=== PATIENT | male | born 1940 | race Caucasian/White ===

== ENCOUNTER 2018-02-19 21:29 | Inpatient (IN) | payer MEDICARE ==
[~2018-02-19] VITALS: Ht 185.4 cm; Wt 66.4 kg
[~2018-02-19 21:29] MED LIST: 00186-0370-20 IH; CRANBERRY 100 M1 SGL PO; EPITOL PO; MULTIPLE VITAMI1 CAP PO; NORCO 325 MG-51 TAB PO; PARCOPA 25/101 UDTAB NG; PRAVACHOL 40MG40 MG PO; PREPARATIO1 SUPP.REC RC; PROBIOTIC FORMU1 CAP PO; PROTONIX 40MG T40 MG PO; PROZAC 20MG20 MG PO; SINEMET 25/101 UDTAB PO; SYNTHROID0.05 MG/TA PO; TEGRETOL 2200 MG/TA1 PO; TRELEGY ELLIPT1 EACH IH; ZESTRIL 10MG10 MG PO; ZYRTEC 10MG10 MG PO
[2018-02-19 22:42] LABS: BASO % 0.4 % (0.0-2.0); EOS # 0.1 (0.0-0.7); EOS % 1.6 % (0-4.0); GRAN # 6.1 (1.4-6.5); GRAN % 71.5 % (42.2-75.2); HEMATOCRIT 38.9 % (42.0-52.0); HEMOGLOBIN 13.4 g/dl (13.5-18.0); LYMPH # 1.4 (1.2-3.4); LYMPH % 16.6 % (20.0-51.0); MEAN CELL VOLUME 98 fl (80.0-100.0); MEAN CORPUSCULAR HEMOGLOBIN 34 pg (27.0-31.0); MEAN CORPUSCULAR HGB CONC 34 g/dl (33.0-37.0); MEAN PLATELET VOLUME 9.1 fl (7.4-10.4); MONO # 0.8 (0.1-0.6); MONO % 9.7 % (1.7-9.3); PLATELET COUNT 209 K/mm3 (130-400); RED BLOOD COUNT 3.98 M/mm3 (4.20-5.60); REDCELL DISTRIBUTION WIDTH-CV 12.4 % (11.5-14.5)
[2018-02-19 22:56] LABS: ALANINE AMINOTRANSFERASE 30 U/L (21-72); ALBUMIN 3.8 gm/dL (3.5-5.0); ALKALINE PHOSPHATASE 108 U/L (50-136); ANION GAP 11 mmol/L (7-16); AST,SGOT 29 U/L (15-37); BILIRUBIN,TOTAL 0.3 mg/dL (0.0-1.0); BLOOD UREA NITROGEN 17 mg/dL (9-20); C-REACTIVE PROTEIN 4.7 mg/dL (0.0-0.9); CALCIUM 8.5 mg/dL (8.4-10.2); CARBON DIOXIDE 25 mmol/L (22-30); CHLORIDE 103 mmol/L (98-107); CREATININE, serum 0.84 mg/dL (0.66-1.25); GLUCOSE 81 mg/dL (74-106); POTASSIUM 3.9 mmol/L (3.4-5.0); SODIUM 139 mmol/L (137-145); TOTAL PROTEIN 7.5 gm/dL (6.4-8.2)
[2018-02-19 22:58] LABS: COLLECTION METHOD CLEAN CATCH
[2018-02-19 23:03] LABS: MUCOUS Present /lpf; PH 5 (5-8); SQUAMOUS EPITHELIAL 0-2 /hpf; URINE APPEARANCE Clear; URINE BACTERIA None Seen /hpf; URINE BILIRUBIN Negative (NEGATIVE); URINE BLOOD 2+ (NEGATIVE); URINE COLOR Yellow; URINE GLUCOSE Negative (NEGATIVE); URINE KETONE Negative (NEGATIVE); URINE LEUKOCYTE ESTERASE Trace (NEGATIVE); URINE NITRATE Negative (NEGATIVE); URINE PROTEIN(semi-quant) Negative (NEGATIVE); URINE UROBILINOGEN Negative (NEGATIVE)
[2018-02-19 23:07] LABS: TROPONIN-I < 0.012 ng/mL (0.000-0.034)
[2018-02-20 03:24] VITALS: BP 160/70; PULSE 62; TEMP 98.4
[2018-02-20] MEDS ORDERED: KEPPRA 500MG500 MG PO (03:47)
[2018-02-20 06:32] LABS: BASO % 0.3 % (0.0-2.0); EOS # 0.1 (0.0-0.7); EOS % 1.6 % (0-4.0); GRAN % 71.2 % (42.2-75.2); HEMOGLOBIN 12.3 g/dl (13.5-18.0); LYMPH # 1.1 (1.2-3.4); MEAN CELL VOLUME 98 fl (80.0-100.0); MEAN CORPUSCULAR HEMOGLOBIN 34 pg (27.0-31.0); MEAN CORPUSCULAR HGB CONC 34 g/dl (33.0-37.0); MEAN PLATELET VOLUME 9.6 fl (7.4-10.4); MONO # 0.7 (0.1-0.6); MONO % 10.6 % (1.7-9.3); PLATELET COUNT 196 K/mm3 (130-400); RED BLOOD COUNT 3.65 M/mm3 (4.20-5.60); REDCELL DISTRIBUTION WIDTH-CV 12.4 % (11.5-14.5)
[2018-02-20 06:43] LABS: HEMATOCRIT 35.9 % (42.0-52.0)
[2018-02-20 06:50] LABS: CREATININE, serum 0.78 mg/dL (0.66-1.25); POTASSIUM 4.3 mmol/L (3.4-5.0)
[2018-02-20 08:37] VITALS: BP 150/72; PULSE 64; TEMP 98.3
[2018-02-20 11:56] VITALS: BP 152/70; PULSE 65; TEMP 98.3
[2018-02-20 17:35] VITALS: BP 132/64; PULSE 58; TEMP 97.8
[2018-02-20 20:00] VITALS: BP 140/55; PULSE 63; TEMP 97.9
[2018-02-21 01:02] VITALS: BP 115/60; PULSE 67; TEMP 97.8
[2018-02-21 05:24] VITALS: BP 119/49; PULSE 57; TEMP 98
[2018-02-21 06:57] LABS: BASO % 0.6 % (0.0-2.0); EOS # 0.2 (0.0-0.7); EOS % 4.2 % (0-4.0); GRAN # 3.3 (1.4-6.5); GRAN % 61.4 % (42.2-75.2); HEMATOCRIT 34.1 % (42.0-52.0); HEMOGLOBIN 11.6 g/dl (13.5-18.0); LYMPH # 1.2 (1.2-3.4); LYMPH % 22.3 % (20.0-51.0); MEAN CELL VOLUME 97 fl (80.0-100.0); MEAN CORPUSCULAR HEMOGLOBIN 33 pg (27.0-31.0); MEAN CORPUSCULAR HGB CONC 34 g/dl (33.0-37.0); MEAN PLATELET VOLUME 9.4 fl (7.4-10.4); MONO # 0.6 (0.1-0.6); MONO % 11.3 % (1.7-9.3); PLATELET COUNT 162 K/mm3 (130-400); REDCELL DISTRIBUTION WIDTH-CV 12.5 % (11.5-14.5)
[2018-02-21 07:10] LABS: CALCIUM 7.7 mg/dL (8.4-10.2); CREATININE, serum 0.78 mg/dL (0.66-1.25); MAGNESIUM 1.9 mg/dL (1.6-2.3); POTASSIUM 3.9 mmol/L (3.4-5.0)
[2018-02-21 07:19] VITALS: BP 127/56; PULSE 70; TEMP 98.1
[2018-02-21 10:57] VITALS: BP 120/62; PULSE 67; TEMP 98.5
[2018-02-21 15:06] VITALS: BP 108/41; PULSE 60; TEMP 98.4
[2018-02-21 20:32] VITALS: BP 108/43; PULSE 74; TEMP 98
[2018-02-22 03:39] VITALS: BP 155/77; PULSE 78; TEMP 98.1
[2018-02-22 06:37] LABS: BASO % 0.5 % (0.0-2.0); EOS # 0.3 (0.0-0.7); EOS % 4.5 % (0-4.0); GRAN # 3.5 (1.4-6.5); GRAN % 62.2 % (42.2-75.2); HEMOGLOBIN 11.4 g/dl (13.5-18.0); LYMPH # 1.3 (1.2-3.4); LYMPH % 22.4 % (20.0-51.0); MEAN CELL VOLUME 98 fl (80.0-100.0); MEAN CORPUSCULAR HEMOGLOBIN 33 pg (27.0-31.0); MEAN CORPUSCULAR HGB CONC 34 g/dl (33.0-37.0); MEAN PLATELET VOLUME 9.4 fl (7.4-10.4); MONO # 0.6 (0.1-0.6); PLATELET COUNT 164 K/mm3 (130-400); RED BLOOD COUNT 3.42 M/mm3 (4.20-5.60); REDCELL DISTRIBUTION WIDTH-CV 12.5 % (11.5-14.5)
[2018-02-22 06:40] LABS: HEMATOCRIT 33.6 % (42.0-52.0)
[2018-02-22 06:43] LABS: CREATININE, serum 0.77 mg/dL (0.66-1.25); POTASSIUM 4.2 mmol/L (3.4-5.0)
[2018-02-22 07:37] VITALS: BP 112/47; PULSE 55; TEMP 98
[2018-02-22 11:06] VITALS: BP 119/67; PULSE 59; TEMP 97.5
[2018-02-22 16:16] VITALS: BP 102/43; PULSE 63; TEMP 98.7
[2018-02-22 18:35] VITALS: BP 106/44; PULSE 56; TEMP 98.4
[2018-02-23 00:30] VITALS: BP 122/40; PULSE 58; TEMP 98.3
[2018-02-23 04:10] VITALS: BP 117/46; PULSE 60; TEMP 97.6
[2018-02-23 08:29] VITALS: BP 111/60; PULSE 61; TEMP 98.2
[2018-02-23] MEDS ORDERED: FIRVANQ50 MG/1 ML PO (09:26)
[2018-02-23 12:15] VITALS: BP 100/53; PULSE 61; TEMP 97.9
== END 2018-02-23 18:35 | disposition home health service (06) | DRG 392 ==
LOC: COL.ER 21:29 → MEDICAL 02-20 01:38
PROVIDERS: Emergency Medicine; Nurse Practitioner Family; Physician Assistant
PROC: 02HV33Z Insertion of Infusion Device into Superior Vena Cava, Percutaneous Approach (ICD-10-PCS; principal; 2018-02-20)
DX: R19.7 Diarrhea, unspecified (principal); E44.0 Moderate protein-calorie malnutrition; I69.351 Hemiplegia and hemiparesis following cerebral infarction affecting right dominant side; Z68.1 Body mass index [BMI] 19.9 or less, adult; I10 Essential (primary) hypertension; I69.320 Aphasia following cerebral infarction; G20 Parkinson's disease; Z86.718 Personal history of other venous thrombosis and embolism; Z87.891 Personal history of nicotine dependence; G40.909 Epilepsy, unspecified, not intractable, without status epilepticus
CPT/HCPCS: 99223-AI; 99232-AI; 99239; C1751; G8978-GP; G8979-GP; G8987-GO; G8988-GO; J1650; J1956; J7030; J7040

== ENCOUNTER 2018-03-07 21:37 | Inpatient (IN) | payer MEDICARE ==
[~2018-03-07] VITALS: Ht 185.4 cm; Wt 63.6 kg
[~2018-03-07 21:37] MED LIST changes: +FIRVANQ50 MG/1 ML PO; +KEPPRA 500MG500 MG PO
[2018-03-07 23:22] LABS: BASO % 0.3 % (0.0-2.0); EOS # 0.1 (0.0-0.7); EOS % 2.1 % (0-4.0); GRAN # 3.8 (1.4-6.5); GRAN % 64.7 % (42.2-75.2); HEMATOCRIT 37.5 % (42.0-52.0); HEMOGLOBIN 12.8 g/dl (13.5-18.0); LYMPH # 1.3 (1.2-3.4); LYMPH % 22.3 % (20.0-51.0); MEAN CELL VOLUME 98 fl (80.0-100.0); MEAN CORPUSCULAR HEMOGLOBIN 34 pg (27.0-31.0); MEAN CORPUSCULAR HGB CONC 34 g/dl (33.0-37.0); MEAN PLATELET VOLUME 9.1 fl (7.4-10.4); MONO # 0.6 (0.1-0.6); MONO % 10.4 % (1.7-9.3); PLATELET COUNT 323 K/mm3 (130-400); RED BLOOD COUNT 3.81 M/mm3 (4.20-5.60); REDCELL DISTRIBUTION WIDTH-CV 12.4 % (11.5-14.5)
[2018-03-07 23:37] LABS: INR 1.1 (0.8-3.0); PROTHROMBIN TIME 12.4 SECONDS (9.7-12.8)
[2018-03-07 23:38] LABS: ALBUMIN 3.6 gm/dL (3.5-5.0); BILIRUBIN,TOTAL 0.2 mg/dL (0.0-1.0); C-REACTIVE PROTEIN 0.8 mg/dL (0.0-0.9); CALCIUM 8.6 mg/dL (8.4-10.2); CREATININE, serum 0.75 mg/dL (0.66-1.25); POTASSIUM 4.4 mmol/L (3.4-5.0); TOTAL PROTEIN 7.1 gm/dL (6.4-8.2)
[2018-03-08] LABS: COLLECTION METHOD CLEAN CATCH
[2018-03-08 00:15] LABS: MUCOUS Present /lpf; PH 6 (5-8); SQUAMOUS EPITHELIAL None Seen /hpf; URINE APPEARANCE Clear; URINE BACTERIA None Seen /hpf; URINE BILIRUBIN Negative (NEGATIVE); URINE BLOOD Negative (NEGATIVE); URINE COLOR Yellow; URINE GLUCOSE Negative (NEGATIVE); URINE KETONE Negative (NEGATIVE); URINE LEUKOCYTE ESTERASE Negative (NEGATIVE); URINE NITRATE Negative (NEGATIVE); URINE PROTEIN(semi-quant) Negative (NEGATIVE); URINE RBC 0-2 /hpf; URINE UROBILINOGEN Negative (NEGATIVE)
[2018-03-08 01:28] LABS: CARBAMAZEPINE (TEGRETOL) 6.8 ug/mL (4.0-12.0)
[2018-03-08 01:47] LABS: PROLACTIN 14.1 ng/mL (3.7-17.9)
[2018-03-08 02:02] LABS: THYROID STIMULATING HORMONE 2.98 uIU/mL (0.465-4.680)
[2018-03-08 02:16] VITALS: BP 161/68; PULSE 92; TEMP 97.6
[2018-03-08 08:32] VITALS: BP 145/64; PULSE 57; TEMP 97.7
[2018-03-08 08:40] LABS: BASO % 0.5 % (0.0-2.0); EOS # 0.2 (0.0-0.7); EOS % 3.1 % (0-4.0); GRAN # 3.4 (1.4-6.5); GRAN % 60.7 % (42.2-75.2); HEMOGLOBIN 12.4 g/dl (13.5-18.0); LYMPH # 1.5 (1.2-3.4); LYMPH % 26.3 % (20.0-51.0); MEAN CELL VOLUME 97 fl (80.0-100.0); MEAN CORPUSCULAR HEMOGLOBIN 34 pg (27.0-31.0); MEAN CORPUSCULAR HGB CONC 35 g/dl (33.0-37.0); MEAN PLATELET VOLUME 9.8 fl (7.4-10.4); MONO # 0.5 (0.1-0.6); MONO % 9.2 % (1.7-9.3); PLATELET COUNT 243 K/mm3 (130-400); RED BLOOD COUNT 3.67 M/mm3 (4.20-5.60); REDCELL DISTRIBUTION WIDTH-CV 12.3 % (11.5-14.5)
[2018-03-08 08:41] LABS: ALBUMIN 3.1 gm/dL (3.5-5.0); BILIRUBIN,TOTAL 0.3 mg/dL (0.0-1.0); CALCIUM 8.2 mg/dL (8.4-10.2); CHOLESTEROL RISK RATIO 2.5; CREATININE, serum 0.73 mg/dL (0.66-1.25); HEMATOCRIT 35.5 % (42.0-52.0); POTASSIUM 4.1 mmol/L (3.4-5.0); TOTAL PROTEIN 6.2 gm/dL (6.4-8.2)
[2018-03-08 11:14] VITALS: BP 117/50; PULSE 56; TEMP 98.2
[2018-03-08 14:06] LABS: FOLATE (FOLIC ACID) 19.5 ng/mL (7.0-31.4)
[2018-03-08 15:24] VITALS: BP 123/48; PULSE 56; TEMP 97.9
[2018-03-08 21:46] VITALS: BP 143/44; PULSE 54; TEMP 97.5
[2018-03-09] VITALS (13 sets, daily range): BP systolic 126–177; BP diastolic 36–105; PULSE 51–128; TEMP 97.5–98.8
[2018-03-09 07:30] LABS: BASO % 0.7 % (0.0-2.0); EOS # 0.2 (0.0-0.7); EOS % 3.5 % (0-4.0); GRAN # 2.6 (1.4-6.5); GRAN % 57.4 % (42.2-75.2); HEMATOCRIT 32.8 % (42.0-52.0); HEMOGLOBIN 11.3 g/dl (13.5-18.0); LYMPH # 1.3 (1.2-3.4); LYMPH % 27.5 % (20.0-51.0); MEAN CELL VOLUME 97 fl (80.0-100.0); MEAN CORPUSCULAR HEMOGLOBIN 33 pg (27.0-31.0); MEAN CORPUSCULAR HGB CONC 35 g/dl (33.0-37.0); MEAN PLATELET VOLUME 9.4 fl (7.4-10.4); MONO # 0.5 (0.1-0.6); MONO % 10.7 % (1.7-9.3); PLATELET COUNT 210 K/mm3 (130-400); RED BLOOD COUNT 3.39 M/mm3 (4.20-5.60); REDCELL DISTRIBUTION WIDTH-CV 12.4 % (11.5-14.5)
[2018-03-09 07:34] LABS: INR 1.1 (0.8-3.0); PROTHROMBIN TIME 12.4 SECONDS (9.7-12.8)
[2018-03-09 07:42] LABS: CALCIUM 7.8 mg/dL (8.4-10.2); CREATININE, serum 0.79 mg/dL (0.66-1.25); POTASSIUM 4.1 mmol/L (3.4-5.0)
[2018-03-09] MEDS ORDERED: LOVENOX 4040 MG/0.4 SQ (13:33)
[2018-03-09] MEDS ORDERED: PLAVIX 75MG TAB75 MG PO (13:33)
[2018-03-09] MEDS ORDERED: ZESTRIL 5MG5 MG PO (13:34)
[2018-03-09] MEDS ORDERED: KEPPRA1000 MG PO (13:35)
[2018-03-09] MEDS ORDERED: TYLENOL 325MG325 MG PO (13:35)
== END 2018-03-09 17:15 | DRG 69 ==
LOC: COL.ER 21:37 → MEDICAL 23:17
PROVIDERS: Family Medicine; Nurse Practitioner Family
PROC: 02HV33Z Insertion of Infusion Device into Superior Vena Cava, Percutaneous Approach (ICD-10-PCS; principal; 2018-03-08)
DX: G45.9 Transient cerebral ischemic attack, unspecified (principal); I69.351 Hemiplegia and hemiparesis following cerebral infarction affecting right dominant side; E44.0 Moderate protein-calorie malnutrition; Z68.1 Body mass index [BMI] 19.9 or less, adult; G40.909 Epilepsy, unspecified, not intractable, without status epilepticus; R53.81 Other malaise; I10 Essential (primary) hypertension; G20 Parkinson's disease; Z66 Do not resuscitate; E78.5 Hyperlipidemia, unspecified; F41.8 Other specified anxiety disorders; F32.9 Major depressive disorder, single episode, unspecified; E03.9 Hypothyroidism, unspecified; I69.320 Aphasia following cerebral infarction; R60.0 Localized edema; Z86.718 Personal history of other venous thrombosis and embolism; R40.2423 Glasgow coma scale score 9-12, at hospital admission
CPT/HCPCS: 99223-AI; 99239; A9585; C1751; G0378; G8987-GO; G8988-GO; G9654; J1650; J2704; J7030

== ENCOUNTER 2018-03-09 15:07 | Inpatient (IN) | payer MEDICARE ==
[~2018-03-09] VITALS: Ht 185.4 cm; Wt 71.4 kg
[~2018-03-09 15:07] MED LIST changes: +KEPPRA1000 MG PO; +LOVENOX 4040 MG/0.4 SQ; +PLAVIX 75MG TAB75 MG PO; +TYLENOL 325MG325 MG PO; +ZESTRIL 5MG5 MG PO
[2018-03-09 17:43] VITALS: BP 160/58; PULSE 61; TEMP 97.7
[2018-03-10 04:14] VITALS: BP 163/63; PULSE 57; TEMP 98
[2018-03-10 16:40] VITALS: BP 143/64; PULSE 55; TEMP 97.7
[2018-03-11 06:00] VITALS: BP 152/66; PULSE 53; TEMP 98.1
[2018-03-12 06:00] VITALS: BP 138/52; PULSE 52; TEMP 97.8
[2018-03-12 17:16] VITALS: BP 113/20; PULSE 59; TEMP 97.4
[2018-03-12 17:30] VITALS: BP 120/60
[2018-03-13 06:00] VITALS: BP 143/48; PULSE 52; TEMP 97.8
[2018-03-14] MEDS ORDERED: ZESTRIL2.5 MG PO (09:29)
[2018-03-14 15:36] VITALS: BP 121/33; PULSE 54; TEMP 97.7
[2018-03-15 04:55] VITALS: BP 124/45; PULSE 52; TEMP 98.3
[2018-03-15 17:53] VITALS: BP 123/33; PULSE 62; TEMP 97.9
[2018-03-16 05:33] VITALS: BP 116/36; PULSE 96; TEMP 98.6
[2018-03-16 18:09] VITALS: BP 115/40; PULSE 61; TEMP 98.3
[2018-03-17 04:42] VITALS: BP 115/36; PULSE 50; TEMP 98.1
[2018-03-17 13:00] VITALS: BP 102/47; PULSE 58
[2018-03-17 18:06] VITALS: BP 125/47; PULSE 56; TEMP 97.7
[2018-03-18 06:09] VITALS: BP 132/44; PULSE 55; TEMP 98.4
[2018-03-18 16:55] VITALS: BP 118/44; PULSE 74; TEMP 98.4
[2018-03-19 04:21] VITALS: BP 130/44; PULSE 58; TEMP 98
[2018-03-19 18:16] VITALS: BP 104/43; PULSE 62; TEMP 97.7
[2018-03-20 06:30] VITALS: BP 142/92; PULSE 62; TEMP 97.5
[2018-03-20 17:56] VITALS: BP 134/41; PULSE 86; TEMP 99.7
[2018-03-20 20:14] LABS: BASO % 0.1 % (0.0-2.0); EOS % 0.1 % (0-4.0); GRAN % 88.4 % (42.2-75.2); HEMOGLOBIN 12.1 g/dl (13.5-18.0); LYMPH # 0.5 (1.2-3.4); LYMPH % 6.3 % (20.0-51.0); MEAN CELL VOLUME 98 fl (80.0-100.0); MEAN CORPUSCULAR HEMOGLOBIN 33 pg (27.0-31.0); MEAN CORPUSCULAR HGB CONC 34 g/dl (33.0-37.0); MEAN PLATELET VOLUME 8.9 fl (7.4-10.4); MONO # 0.4 (0.1-0.6); MONO % 4.8 % (1.7-9.3); PLATELET COUNT 185 K/mm3 (130-400); RED BLOOD COUNT 3.65 M/mm3 (4.20-5.60); REDCELL DISTRIBUTION WIDTH-CV 12.7 % (11.5-14.5)
[2018-03-20 20:16] LABS: HEMATOCRIT 35.8 % (42.0-52.0)
[2018-03-20 20:24] LABS: ALBUMIN 3.4 gm/dL (3.5-5.0); BILIRUBIN,TOTAL 0.4 mg/dL (0.0-1.0); CALCIUM 8.4 mg/dL (8.4-10.2); CREATININE, serum 0.71 mg/dL (0.66-1.25); POTASSIUM 4.2 mmol/L (3.4-5.0); TOTAL PROTEIN 6.5 gm/dL (6.4-8.2)
[2018-03-21 06:30] VITALS: BP 138/43; PULSE 69; TEMP 98.7
[2018-03-21 11:16] VITALS: BP 133/42; PULSE 72; TEMP 98.1
[2018-03-21 12:29] LABS: CALCIUM 8.1 mg/dL (8.4-10.2); CREATININE, serum 0.68 mg/dL (0.66-1.25); MAGNESIUM 1.8 mg/dL (1.6-2.3)
[2018-03-21 17:47] VITALS: BP 135/42; PULSE 74; TEMP 99.4
[2018-03-22 07:07] VITALS: BP 115/29; PULSE 67; TEMP 98.7
[2018-03-22 07:47] LABS: HEMOGLOBIN 11.9 g/dl (13.5-18.0); MEAN CELL VOLUME 99 fl (80.0-100.0); MEAN CORPUSCULAR HEMOGLOBIN 33 pg (27.0-31.0); MEAN CORPUSCULAR HGB CONC 33 g/dl (33.0-37.0); MEAN PLATELET VOLUME 9.1 fl (7.4-10.4); PLATELET COUNT 181 K/mm3 (130-400); RED BLOOD COUNT 3.58 M/mm3 (4.20-5.60); REDCELL DISTRIBUTION WIDTH-CV 12.5 % (11.5-14.5)
[2018-03-22 07:52] LABS: HEMATOCRIT 35.6 % (42.0-52.0)
[2018-03-22 07:56] LABS: CALCIUM 7.6 mg/dL (8.4-10.2); CREATININE, serum 0.71 mg/dL (0.66-1.25); MAGNESIUM 1.9 mg/dL (1.6-2.3); POTASSIUM 3.6 mmol/L (3.4-5.0)
[2018-03-22 09:05] LABS: BAND 45 % (0-10); LYMPHOCYTE 9 % (20.0-51.0); NEUTROPHILS 39 % (42.0-75.2)
[2018-03-22 16:54] VITALS: BP 133/33; PULSE 79; TEMP 98.2
[2018-03-22 17:46] VITALS: BP 147/47; PULSE 87; TEMP 98.1
[2018-03-23 03:59] VITALS: BP 137/49; PULSE 82; TEMP 99.4
[2018-03-23 06:30] VITALS: TEMP 99.7
[2018-03-23 08:04] LABS: HEMOGLOBIN 11.9 g/dl (13.5-18.0); MEAN CELL VOLUME 97 fl (80.0-100.0); MEAN CORPUSCULAR HEMOGLOBIN 33 pg (27.0-31.0); MEAN CORPUSCULAR HGB CONC 34 g/dl (33.0-37.0); MEAN PLATELET VOLUME 9.4 fl (7.4-10.4); PLATELET COUNT 173 K/mm3 (130-400); RED BLOOD COUNT 3.58 M/mm3 (4.20-5.60); REDCELL DISTRIBUTION WIDTH-CV 12.2 % (11.5-14.5)
[2018-03-23 08:10] LABS: HEMATOCRIT 34.6 % (42.0-52.0)
[2018-03-23 08:13] LABS: CALCIUM 7.3 mg/dL (8.4-10.2); CREATININE, serum 0.62 mg/dL (0.66-1.25); MAGNESIUM 1.8 mg/dL (1.6-2.3); POTASSIUM 3.2 mmol/L (3.4-5.0)
[2018-03-23 09:05] LABS: LYMPHOCYTE 9 % (20.0-51.0)
[2018-03-23 09:07] LABS: ANISOCYTOSIS 1+; PLATELET ESTIMATE NORMAL (NORMAL)
[2018-03-23 09:08] LABS: HYPOCHROMIA 1+
[2018-03-23] MEDS ORDERED: DUO-KAPS1 CAP PO (09:25)
[2018-03-23] MEDS ORDERED: PRAVACHOL 40MG40 MG PO (09:25)
[2018-03-23] MEDS ORDERED: KEPPRA 500MG500 MG PO (09:25)
[2018-03-23] MEDS ORDERED: Patient's Own Medica PO (09:25)
[2018-03-23] MEDS ORDERED: SYNTHROID0.05 MG/TA PO (09:25)
[2018-03-23] MEDS ORDERED: IPRATROPIUM BROM3 M1 IH ×2 (09:25)
[2018-03-23] MEDS ORDERED: LOVENOX 4040 MG/0.4 SQ (09:25)
[2018-03-23] MEDS ORDERED: SINEMET 25/101 UDTAB PO (09:25)
[2018-03-23] MEDS ORDERED: ZYRTEC 10MG10 MG PO (09:25)
[2018-03-23] MEDS ORDERED: Patient's Own Medica IH (09:25)
[2018-03-23] MEDS ORDERED: VANCOCIN H250 MG/CAP PO (09:25)
[2018-03-23] MEDS ORDERED: PROBIOTIC ACID1 EAC3 PO (09:25)
[2018-03-23] MEDS ORDERED: PROZAC 20MG20 MG PO (09:25)
[2018-03-23] MEDS ORDERED: PLAVIX 75MG TAB75 MG PO (09:25)
[2018-03-23] MEDS ORDERED: TYLENOL 325MG325 MG PO (09:25)
[2018-03-23] MEDS ORDERED: TEGRETOL 1100 MG/TAB PO (09:25)
[2018-03-23 10:00] VITALS: TEMP 99.1
[2018-03-23 10:08] LABS: BAND 56 % (0-10); EOSINOPHIL 1 % (0-4); METAMYELOCYTE 2 % (0-0); NEUTROPHILS 25 % (42.0-75.2)
[2018-03-23 13:04] VITALS: BP 137/49; PULSE 82; TEMP 99.1
== END 2018-03-23 14:12 | DRG 948 ==
PROVIDERS: Internal Medicine
DX: R53.81 Other malaise (principal); I69.351 Hemiplegia and hemiparesis following cerebral infarction affecting right dominant side; G45.9 Transient cerebral ischemic attack, unspecified; A04.71 Enterocolitis due to Clostridium difficile, recurrent; E87.1 Hypo-osmolality and hyponatremia; I69.320 Aphasia following cerebral infarction; Z66 Do not resuscitate; I69.392 Facial weakness following cerebral infarction; R56.9 Unspecified convulsions; G20 Parkinson's disease; Z86.718 Personal history of other venous thrombosis and embolism; F17.210 Nicotine dependence, cigarettes, uncomplicated; I10 Essential (primary) hypertension; J45.909 Unspecified asthma, uncomplicated; Z91.81 History of falling; E78.5 Hyperlipidemia, unspecified
CPT/HCPCS: 99222-AI; 99232-AI; 99233-AI; 99239; J1650; J7030

== ENCOUNTER → 2018-04-02 | Outpatient (REF) ==
[~2018-04-02] MED LIST changes: +BETAPACE 80MG80 MG PO; +DUO-KAPS1 CAP PO; +ELIQUIS 5MG PO; +IPRATROPIUM BROM3 M1 IH; +LASIX 20MG TABL20 MG PO; +PROBIOTIC ACID1 EAC3 PO; +Patient's Own Medica IH; +Patient's Own Medica PO; +TEGRETOL 1100 MG/TAB PO; +VANCOCIN H125 MG/CAP PO; +VANCOCIN H250 MG/CAP PO; +ZESTRIL2.5 MG PO
[2018-04-02 13:26] LABS: CALCIUM 7.8 mg/dL (8.4-10.2); CREATININE, serum 0.61 mg/dL (0.66-1.25); MAGNESIUM 1.7 mg/dL (1.6-2.3)
== END ==
LOC: ZCOL.LAB 13:04
PROVIDERS: Internal Medicine
DX: A04.72 Enterocolitis due to Clostridium difficile, not specified as recurrent (principal); E87.6 Hypokalemia; E87.0 Hyperosmolality and hypernatremia; I21.9 Acute myocardial infarction, unspecified; Z87.74 Personal history of (corrected) congenital malformations of heart and circulatory system

== ENCOUNTER 2018-05-04 14:39 | Emergency (ER) | payer MEDICARE ==
[2018-05-04 15:02] VITALS: TEMP 100.2
[2018-05-04] MEDS ORDERED: COUMADIN 5MG5 MG/TAB PO (15:11)
[2018-05-04 15:24] LABS: BASO % 0.2 % (0.0-2.0); EOS # 0.1 (0.0-0.7); EOS % 0.5 % (0-4.0); GRAN # 12.7 (1.4-6.5); GRAN % 86.5 % (42.2-75.2); HEMATOCRIT 42.1 % (42.0-52.0); HEMOGLOBIN 13.9 g/dl (13.5-18.0); LYMPH # 0.8 (1.2-3.4); LYMPH % 5.6 % (20.0-51.0); MEAN CELL VOLUME 101 fl (80.0-100.0); MEAN CORPUSCULAR HEMOGLOBIN 33 pg (27.0-31.0); MEAN CORPUSCULAR HGB CONC 33 g/dl (33.0-37.0); MEAN PLATELET VOLUME 9.7 fl (7.4-10.4); MONO % 6.9 % (1.7-9.3); PLATELET COUNT 253 K/mm3 (130-400); RED BLOOD COUNT 4.19 M/mm3 (4.20-5.60); REDCELL DISTRIBUTION WIDTH-CV 13.6 % (11.5-14.5)
[2018-05-04 15:25] LABS: PROTHROMBIN TIME 22.2 SECONDS (9.7-12.8)
[2018-05-04 15:36] LABS: ALBUMIN 3.9 gm/dL (3.5-5.0); BILIRUBIN,TOTAL 0.6 mg/dL (0.0-1.0); CALCIUM 8.7 mg/dL (8.4-10.2); CREATININE, serum 0.8 mg/dL (0.66-1.25); POTASSIUM 4.7 mmol/L (3.4-5.0); TOTAL PROTEIN 7.6 gm/dL (6.4-8.2)
[2018-05-04 16:10] LABS: ARTERIAL BLD GAS O2 SATURATION 91.1 % (92-100); ARTERIAL BLOOD GAS BASE EXCESS 2.3 (-2-2); ARTERIAL BLOOD GAS HCO3 25.9 meq/L (22-26); ARTERIAL BLOOD GAS PCO2 36.8 mmHg (35-45); ARTERIAL BLOOD GAS PO2 58.5 mmHg (80-100); ARTERIAL BLOOD GAS pH 7.47 (7.35-7.45)
[2018-05-04 16:15] LABS: COLLECTION METHOD CATHETER; MUCOUS Present /lpf; PH 5 (5-8); SQUAMOUS EPITHELIAL 0-2 /hpf; URINE APPEARANCE Hazy; URINE BACTERIA Rare /hpf; URINE BILIRUBIN Negative (NEGATIVE); URINE BLOOD 3+ (NEGATIVE); URINE COLOR Yellow; URINE GLUCOSE Negative (NEGATIVE); URINE KETONE Negative (NEGATIVE); URINE LEUKOCYTE ESTERASE Negative (NEGATIVE); URINE NITRATE Negative (NEGATIVE); URINE PROTEIN(semi-quant) Negative (NEGATIVE); URINE RBC >50 /hpf; URINE UROBILINOGEN Negative (NEGATIVE)
[2018-05-04 20:00] VITALS: BP 120/79; PULSE 67
== END 2018-05-04 20:00 | disposition short-term general hospital (02) ==
LOC: COL.ER 14:39
PROVIDERS: Family Medicine
DX: K52.9 Noninfective gastroenteritis and colitis, unspecified (principal); Z86.73 Personal history of transient ischemic attack (TIA), and cerebral infarction without residual deficits; Z79.01 Long term (current) use of anticoagulants
CPT/HCPCS: J2185; J7030

== ENCOUNTER → 2018-05-19 | Outpatient (CLI) | payer MEDICARE ==
[~2018-05-19] MED LIST changes: +COUMADIN 5MG5 MG/TAB PO
== END ==
LOC: ZCOL.LAB 20:23
DX: E44.0 Moderate protein-calorie malnutrition (principal)

== ENCOUNTER → 2018-05-29 | Outpatient (CLI) | payer MEDICARE | LOC: ZCOL.LAB 13:30 | DX: R19.7 Diarrhea, unspecified (principal) ==

== ENCOUNTER 2019-01-08 06:09 | Emergency (ER) | payer MEDICARE ==
[~2019-01-08] VITALS: Ht 182.9 cm; Wt 68.2 kg
[~2019-01-08 06:09] MED LIST changes: +COUMADIN 2MG2 MG/TAB PO; +COUMADIN 6MG6 MG/TAB PO; +JANTOVEN6 MG PO
[2019-01-08 06:10] VITALS: TEMP 97.1
[2019-01-08 07:37] LABS: COLLECTION METHOD CLEAN CATCH
[2019-01-08 07:45] LABS: MUCOUS Present /lpf; PH 6 (5-8); SQUAMOUS EPITHELIAL None Seen /hpf; URINE APPEARANCE Clear; URINE BACTERIA None Seen /hpf; URINE BILIRUBIN Negative (NEGATIVE); URINE BLOOD Negative (NEGATIVE); URINE COLOR Yellow; URINE GLUCOSE Negative (NEGATIVE); URINE KETONE Negative (NEGATIVE); URINE LEUKOCYTE ESTERASE Negative (NEGATIVE); URINE NITRATE Negative (NEGATIVE); URINE PROTEIN(semi-quant) Negative (NEGATIVE); URINE RBC 0-2 /hpf; URINE UROBILINOGEN Negative (NEGATIVE)
[2019-01-08 08:56] LABS: ALANINE AMINOTRANSFERASE 21 U/L (21-72); ALBUMIN 3.4 gm/dL (3.5-5.0); ALKALINE PHOSPHATASE 125 U/L (50-136); ANION GAP 9 mmol/L (7-16); AST,SGOT 37 U/L (15-37); BILIRUBIN,TOTAL 0.6 mg/dL (0.0-1.0); BLOOD UREA NITROGEN 15 mg/dL (9-20); CALCIUM 8.5 mg/dL (8.4-10.2); CARBON DIOXIDE 25 mmol/L (22-30); CHLORIDE 99 mmol/L (98-107); CREATININE, serum 0.64 (0.66-1.25); GLUCOSE 93 mg/dL (74-106); POTASSIUM 4.6 mmol/L (3.4-5.0); SODIUM 133 mmol/L (137-145); TOTAL PROTEIN 7.1 gm/dL (6.4-8.2)
[2019-01-08 09:04] LABS: BASO % 0.3 % (0.0-2.0); EOS # 0.2 (0.0-0.7); EOS % 1.7 % (0-4.0); GRAN # 7.5 (1.4-6.5); GRAN % 75.7 % (42.2-75.2); HEMATOCRIT 38.5 % (42.0-52.0); HEMOGLOBIN 13.3 g/dl (13.5-18.0); LYMPH # 1.4 (1.2-3.4); LYMPH % 13.9 % (20.0-51.0); MEAN CELL VOLUME 94 fl (80.0-100.0); MEAN CORPUSCULAR HEMOGLOBIN 33 pg (27.0-31.0); MEAN CORPUSCULAR HGB CONC 35 g/dl (33.0-37.0); MEAN PLATELET VOLUME 10.2 fl (7.4-10.4); MONO # 0.8 (0.1-0.6); PLATELET COUNT 219 K/mm3 (130-400); RED BLOOD COUNT 4.08 M/mm3 (4.20-5.60); REDCELL DISTRIBUTION WIDTH-CV 12.9 % (11.5-14.5)
[2019-01-08 09:07] LABS: INR 5.3 (0.8-3.0); PARTIAL THROMBOPLASTIN TIME 42.2 SECONDS (26.0-37.0); PROTHROMBIN TIME 65.8 SECONDS (9.7-12.8)
[2019-01-08 09:08] LABS: TROPONIN-I < 0.012 ng/mL (0.000-0.035)
[2019-01-08 09:12] LABS: PROLACTIN 11.8 ng/mL (3.7-17.9)
[2019-01-08 10:10] VITALS: BP 127/63; PULSE 61
== END 2019-01-08 10:14 | disposition home or self-care (01) ==
LOC: COL.ER 06:09
PROVIDERS: Emergency Medicine
DX: S60.512A Abrasion of left hand, initial encounter (principal); S60.511A Abrasion of right hand, initial encounter; R79.1 Abnormal coagulation profile; I10 Essential (primary) hypertension; I48.91 Unspecified atrial fibrillation; G20 Parkinson's disease; Z86.73 Personal history of transient ischemic attack (TIA), and cerebral infarction without residual deficits; Z79.01 Long term (current) use of anticoagulants; Z79.51 Long term (current) use of inhaled steroids; W19.XXXA Unspecified fall, initial encounter; Y92.000 Kitchen of unspecified non-institutional (private) residence as the place of occurrence of the external cause

== ENCOUNTER → 2019-01-25 | Outpatient (CLI) | payer MEDICARE ==
[2019-01-25 11:52] LABS: INR 1.2 (0.8-3.0); PROTHROMBIN TIME 13.7 SECONDS (9.7-12.8)
== END ==
LOC: COL.LAB 11:06
PROVIDERS: Emergency Medicine
DX: I48.91 Unspecified atrial fibrillation (principal)